=== PATIENT | male | born 1955 | race Two or more races ===

== ENCOUNTER 2016-09-28 17:07 | Emergency (ER) ==
[2016-09-28 17:20] VITALS: BP 112/72; TEMP 98; BMI 23.1
[2016-09-28 18:29] LABS: BASOPHILS % (AUTO) 0.5 % (0.0-3.0); EOSINOPHILS # (AUTO) 0.1 K/ul (0.0-0.7); EOSINOPHILS % (AUTO) 2.8 % (0.0-7.0); HEMATOCRIT 43.5 % (42.0-52.0); HEMOGLOBIN 14.6 g/dl (14.0-18.0); IMMATURE GRANULOCYTE % (AUTO) 0.5 % (0.0-5.0); LYMPHOCYTES # (AUTO) 0.9 K/uL (0.60-3.4); LYMPHOCYTES % (AUTO) 20.3 (10.0-50.0); MEAN CORPUSCULAR HEMOGLOBIN 28.7 pg (27.0-31.0); MEAN CORPUSCULAR HGB CONC 33.6 (31.8-35.4); MEAN CORPUSCULAR VOLUME 85.6 fl (80.0-94.0); MONOCYTES # (AUTO) 0.9 K/uL (0.4-2.0); MONOCYTES % (AUTO) 21.4 (0-10); NEUTROPHILS # (AUTO) 2.4 K/ul (2.0-6.9); NEUTROPHILS % (AUTO) 54.5; PLATELET COUNT 141 10^3/uL (140-440); RED BLOOD COUNT 5.08 10^6/ul (4.70-6.10); WHITE BLOOD COUNT 4.34 K/ul (4.2-10.2)
[2016-09-28] MEDS ORDERED: LIDOCAINE 1 % AMP 5 ML (SUTURES) IM STA (18:47)
[2016-09-28] MEDS ORDERED: ROCEPHIN IM STA (18:47)
[2016-09-28] MEDS ORDERED: ZITHROMAX PO STA (18:47)
[2016-09-28 18:49] LABS: ALBUMIN 3.6 g/dL (3.4-5.0); ALBUMIN/GLOBULIN RATIO 1.16; ANION GAP 11.7; BILIRUBIN,TOTAL 0.32 mg/dL (0.00-1.20); BUN/CREATININE RATIO 16.84; CREATININE 0.95 mg/dL (0.60-1.10); POTASSIUM 3.7 mmol/L (3.5-5.1); TOTAL PROTEIN 6.7 g/dL (5.8-8.1)
--- NOTE | 2016-09-28 18:49 | ED.PDOC ---
General ED Provider: Dr. COLT SNIDER Chief Complaint: Fever Stated Complaint: COUGH, FLU LIKE SYMPTOMS Time Seen by Physician: 17:10 Mode of Arrival: Walk-In Information Source: Patient, Family Exam Limitations: No limitations Nursing and Triage Documentation Reviewed and Agree: Yes Respiratory Complaint Exam - Respiratory Complaint/Exam Onset/Duration: 2 DAYS Symptoms Are: Resolved Timing: Intermittent Initial Severity: Moderate Current Severity: Mild Location: Nose, Throat, Chest Character: Reports: Non-productive cough Alleviating: Reports: Spontaneous resolution Associated Signs and Symptoms: Reports: Fever, Chills, URI, Nasal congestion History of Healthcare-Acquired Pneumonia: No Cardiac Risk Factors: Reports: None Pseudomonas Risk Factors: Reports: None Tuberculosis Risk Factors: Reports: None Home Oxygen Use: No Recent Stress Test: No Recent Echo/LV Function: No Current Antibiotic Use: No Current Asthma Medication Use: No Respiratory Distress: None Inadequate Respiratory Effort: No Dysphagia Present: No Stridor Present: No JVD Present: No Accessory Muscle Use: No Retractions: Not Present Grunting Respirations: No Kussmaul Respirations: No Differential Diagnoses: URI, Lower Resp. Infection Review of Systems - Review Of Systems Constitutional: Reports: Malaise Eyes: Reports: No symptoms Ears, Nose, Mouth, Throat: Reports: No symptoms Respiratory: Reports: Cough Cardiac: Reports: No symptoms GI: Reports: No symptoms : Reports: No symptoms Musculoskeletal: Reports: No symptoms Skin: Reports: No symptoms Neurological: Reports: No symptoms Endocrine: Reports: No symptoms Hematologic/Lymphatic: Reports: No symptoms All Other Systems: Reviewed and Negative Past Medical History - Past Medical History Endocrine: Reports: Unknown Cardiovascular: Reports: Unknown Respiratory: Reports: Unknown Hematological: Reports: Unknown Gastrointestinal: Reports: Unknown Genitourinary: Reports: Unknown Neuro/Psych: Reports: Unknown Musculoskeletal: Reports: Unknown Cancer: Reports: Unknown - Surgical History General Surgical History: Reports: Unknown - Family History Family History: Reports: Unknown - Social History Smoking Status: Never smoker Hx Substance Use: No Alcohol Screening: None Physical Exam - Physical Exam Appearance: Ill-appearing Ill-appearing: Mild Pain Distress: Mild Eyes: TARAN, EOMI, Conjunctiva clear ENT: Ears normal, Nose normal, Oropharynx normal Respiratory: Wheezes Cardiovascular: RRR, Pulses normal, No rub, No murmur GI/: Soft, Nontender, No masses, Bowel sounds normal, No Organomegaly Musculoskeletal: Normal strength, ROM intact, No edema, No calf tenderness Skin: Warm, Dry, Normal color Neurological: Sensation intact, Motor intact, Reflexes intact, Cranial nerves intact, Alert, Oriented Psychiatric: Affect appropriate, Mood appropriate Critical Care Note - Critical Care Note Total Time (mins): 0 Course - Course Hematology/Chemistry: 09/28/16 18:25 Orders, Labs, Meds: Lab Review 09/28/16 18:25 WBC 4.34 RBC 5.08 Hgb 14.6 Hct 43.5 MCV 85.6 MCH 28.7 MCHC 33.6 RDW Coeff of Maurice 13.7 Plt Count 141 Immature Gran % (Auto) 0.5 Neut % (Auto) 54.5 Lymph % (Auto) 20.3 [place] % (Auto) 21.4 H Eos % (Auto) 2.8 Baso % (Auto) 0.5 Immature Gran # (Auto) 0.0 Neut # 2.4 Lymph # 0.9 [place] # 0.9 Eos # 0.1 Baso # 0.0 Orders Category Date Time Status BLOOD CULTURE Stat LAB 09/28/16 18:25 Received CBC W/ AUTO DIFF Stat LAB 09/28/16 18:25 Completed COMPREHENSIVE METABOLIC PANEL Stat LAB 09/28/16 18:25 Received RAPID FLU A/B Stat LAB 09/28/16 18:30 Received STREP SCREEN Stat LAB 09/28/16 18:30 Received CHEST, 2 VIEWS PA & LAT Stat RADS 09/28/16 18:13 Taken Vital Signs: Temp Pulse Resp BP Pulse Ox 09/28/16 17:09 98.0 F 80 20 112/72 98 Departure - Departure Time of Disposition: 18:50 Disposition: HOME SELF-CARE Discharge Problem: Fever, Viral infection, Bronchitis Instructions: Bronchospasm (ED), Wheezing (ED), How Your Lungs Work (ED), Acute Bronchitis (ED) Condition: Good Pt referred to PMD for follow-up: No Additional Instructions: Please call your Family Physician as soon as possible to schedule a follow-up appointment. Allergies/Adverse Reactions: Allergies No Known Allergies Allergy (Verified 09/28/16 17:13)
[2016-09-28] MEDS ORDERED: DUONEB NEB STA (18:51)
[2016-09-28 18:52] LABS: FLU INTERNAL QC INTERNAL QC VALID; RAPID FLU A NEGATIVE (NEGATIVE); RAPID FLU B NEGATIVE (NEGATIVE)
--- NOTE | 2016-09-29 07:41 | DI ---
EXAM: Two views of the chest. History: Fever. Findings: Normal heart size. Subtle right apical opacity. No pleural fluid and no pneumothorax. No acute osseous abnormalities. Impression: Subtle right apical opacity could be artifact from rib shadow but cannot exclude early infiltrate or developing lung nodule. Follow-up recommended.
== END 2016-09-28 19:58 | disposition home or self-care (01) ==
LOC: ED 17:07
DX: B34.9 Viral infection, unspecified (principal); J40 Bronchitis, not specified as acute or chronic
CPT/HCPCS: 36415; 80053; 85025; 87040; 87651; 87804; 87880; 94640; 96372; 99283

== ENCOUNTER 2016-10-01 17:13 | Emergency (ER) ==
[2016-10-01 17:22] VITALS: BP 137/88; TEMP 97.7; BMI 22.8
--- NOTE | 2016-10-01 18:02 | ED.PDOC ---
General Stated Complaint: AP-Seen 3 days ago for cough. Dx with bronchitis. Has developed abd pain a weekk ago. Worse when coughs. Appetite decreased. Able to drink liquids[ End ]97.7 70 20 98% 137/88 03/14. Patient Name: THIAGO RICE. Date: 09/28/16 RAFATI: 2 DAYS: URI, Lower Resp. : Malaise. s: Bronchospasm (ED), Wheezing (ED), How Your Lungs Work (ED), Acute Bronchitis (ED ). Please call your Family Physician as soon as possible to schedule a follow- up appointment. Instructions: Abdominal Pain (ED): low fat diet---librax q 8hrs prn pain #15--omeprazole 20mg #30---f/u with [facility] --will need gb xrays. No Known Allergies Allergy Time Seen by Physician: 18:05 Mode of Arrival: Walk-In Information Source: Patient Exam Limitations: Language barrier Nursing and Triage Documentation Reviewed and Agree: No <PREET MARINELLI JR - Last Filed: 10/01/16 19:09> <SELMA SHAIKH - Last Filed: 10/01/16 20:32> ED Provider: Dr. SELMA SHAIKH Chief Complaint: Cough Review of Systems - Review Of Systems Constitutional: Reports: Malaise, Loss of appetite Eyes: Reports: No symptoms Ears, Nose, Mouth, Throat: Reports: No symptoms Respiratory: Reports: No symptoms, Cough (COUGHS ONEXAM BUT DENIES ANY COUGH THROUGH INTERNAL AUDIT CONSULTANT) Cardiac: Reports: No symptoms GI: Reports: Abdomen distended, Abdominal pain, Nausea, Poor appetite. Denies: Diarrhea, Vomiting : Reports: No symptoms Musculoskeletal: Reports: No symptoms Skin: Reports: No symptoms Neurological: Reports: No symptoms Endocrine: Reports: No symptoms Hematologic/Lymphatic: Reports: No symptoms All Other Systems: Other <PREET MARINELLI JR - Last Filed: 10/01/16 19:09> Past Medical History - Past Medical History Endocrine: Reports: Unknown Cardiovascular: Reports: Unknown Respiratory: Reports: Unknown Hematological: Reports: Unknown Gastrointestinal: Reports: Unknown Genitourinary: Reports: Unknown Neuro/Psych: Reports: Unknown Musculoskeletal: Reports: Unknown Cancer: Reports: Unknown - Surgical History General Surgical History: Reports: Unknown - Family History Family History: Reports: Unknown - Social History Smoking Status: Never smoker Hx Substance Use: No Alcohol Screening: None <PREET MARINELLI JR - Last Filed: 10/01/16 19:09> Physical Exam - Physical Exam Appearance: Well-appearing, Thin Pain Distress: Moderate Eyes: TARAN, EOMI, Conjunctiva clear ENT: Ears normal, Nose normal, Oropharynx normal Neck: Supple Respiratory: Airway patent, Breath sounds equal, Respirations nonlabored, Rhonchi Cardiovascular: RRR, Pulses normal, No rub, No murmur GI/: Soft, No masses, Bowel sounds normal, No Organomegaly, Tender (DIFFUSE POINTS TO PERIUMBILICAL AREA MOST TENDER) Musculoskeletal: Normal strength, ROM intact, No edema, No calf tenderness Skin: Warm, Dry, Normal color Neurological: Sensation intact, Motor intact, Reflexes intact, Cranial nerves intact, Alert, Oriented Psychiatric: Affect appropriate, Mood appropriate <PREET MARINELLI JR - Last Filed: 10/01/16 19:09> Re-Evaluation - Re-Evaluation Time of Re-Evaluation: 20:29 Status: Unchanged Vital Signs Stable: Yes Pain Level: 4 Appearance: NAD Lungs: Clear Skin: Warm and Dry Neuro: Alert and Oriented X3 CV: RRR <SELMA SHAIKH - Last Filed: 10/01/16 20:32> Critical Care Note - Critical Care Note Total Time (mins): 0 <[address] CEDENO - Last Filed: 10/01/16 19:09> Course - Course Hematology/Chemistry: 10/01/16 18:15 10/01/16 18:15 <PREET MARINELLI JR - Last Filed: 10/01/16 19:09> - Course Hematology/Chemistry: 10/01/16 18:15 10/01/16 18:15 <SELMA SHAIKH - Last Filed: 10/01/16 20:32> - Course Orders, Labs, Meds: Lab Review 10/01/16 10/01/16 18:15 18:55 WBC 3.33 L RBC 5.62 Hgb 16.1 Hct 47.2 MCV 84.0 MCH 28.6 MCHC 34.1 RDW Coeff of [place] 13.5 Plt Count 184 Immature Gran % (Auto) 0.6 Neut % (Auto) 35.5 Lymph % (Auto) 48.3 [place] % (Auto) 14.1 H Eos % (Auto) 0.9 Baso % (Auto) 0.6 Immature Gran # (Auto) 0.0 Neut # 1.2 L Lymph # 1.6 [place] # 0.5 Eos # 0.0 Baso # 0.0 Sodium 141 Potassium 3.9 Chloride 105 Carbon Dioxide 26 Anion Gap 13.9 BUN 21 H Creatinine 0.99 Estimated GFR (MDRD) 76.00 BUN/Creatinine Ratio 21.21 Glucose 91 Calcium 9.7 Total Bilirubin 0.53 AST 29 ALT 30 Alkaline Phosphatase 69 Total Protein 7.9 Albumin 4.2 Globulin 3.7 Albumin/Globulin Ratio 1.14 Amylase 58 Lipase 45 Procalcitonin < 0.05 Urine Color Yellow Urine Clarity Clear Urine pH 5.5 Ur Specific [place] >=1.030 Urine Protein 1+ Urine Glucose (UA) Negative Urine Ketones Negative Urine Blood Negative Urine Nitrite Negative Urine Bilirubin Negative Urine Urobilinogen 0.2 Ur Leukocyte Esterase Negative Urine Microscopic RBC 2-5 Ur Squamous Epith Cells 0-2 Urine Bacteria Trace Urine Mucus Trace H. pylori IgG Antibody Negative Orders Category Date Time Status EKG-(ED ONLY) Stat CARDIO 10/01/16 19:26 Ordered NPO REMINDER: IMAGING ONCE CARE 10/01/16 20:06 Active Bladder [ED BLADDER SCAN] .ONCE EMERGENCY 10/01/16 19:57 Active IV [ED IV/MEDIPORT/POWERPORT] .ONCE EMERGENCY 10/01/16 20:05 Active AMYLASE Stat LAB 10/01/16 18:15 Completed CBC W/ AUTO DIFF Stat LAB 10/01/16 18:15 Completed COMPREHENSIVE METABOLIC PANEL Stat LAB 10/01/16 18:15 Completed H. PYLORI SCREEN Stat LAB 10/01/16 18:15 Completed LIPASE Stat LAB 10/01/16 18:15 Completed PROCALCITONIN Stat LAB 10/01/16 18:15 Completed URINALYSIS C & S IF INDICATED Stat LAB 10/01/16 18:55 Completed 0.9 % Sodium Chloride [Saline Flush] MEDS 10/01/16 20:05 Ordered 1 syr IVF PRN PRN Sodium Chloride 0.9% [Sodium Chloride] 1,000 ml MEDS 10/01/16 20:05 Active IV 100 mls/hr CHEST, 2 VIEWS PA & LAT Stat RADS 10/01/16 18:[address] ABDOMEN/PELVIS W CONTRAST Stat RADS 10/01/16 20:[address] ABDOMEN/PELVIS WO CONTRAST Stat RADS 10/01/16 19:26 Completed Medications Generic Name Dose Route Start Last Admin Trade Name Christa PRN Reason Stop Dose Admin Sodium Chloride 1,000 mls @ 100 mls/hr 10/01/16 20:05 Sodium Chloride IV 10/02/16 06:04 .Q10H STA Sodium Chloride 1 syr 10/01/16 20:05 Saline Flush IVF PRN PRN To flush IV mr rice is still having pain--i spokle through an exterminator helper termite and explained carefully we wanted to get a ct scan with contrast --he absolutely refuses..again i explained through an exterminator helper termite we may miss pathology but not getting the ct scan but he still refuses--explain this could delay the dx and could result in injury and even but he still refuses..he wants to leave [place] (SELMA SHAIKH) Vital Signs: Temp Pulse Resp BP Pulse Ox 10/01/16 17:14 97.7 F 70 20 137/88 98 Departure - Departure Time of Disposition: 19:02 Pt referred to PMD for follow-up: Yes <PREET MARINELLI JR - Last Filed: 10/01/16 19:09> - Departure Pt referred to PMD for follow-up: Yes Disposition Discussed With: Patient, Family <SEMLA SHAIKH - Last Filed: 10/01/16 20:32> - Departure Disposition: AMA Discharge Problem: Abdominal pain Qualifiers: Abdominal location: periumbilical Qualifier Code: (R10.33) Periumbilical pain Instructions: Acute Abdominal Pain (ED) Condition: Fair Additional Instructions: ABDOMINAL PAIN CAN BE FROM SERIOUS CAUSES LOW WHITE COUNT DOSE NOT INDICATE INFECTION BLOOD TESTS ARE NORMAL NORMAL TEMPERATURE DOES NOT INDICATE INFECTION PAIN IN THIS AREA CAN BE FROM DEVELOPING PROBLEM SUCH APPENDICITIS OR GALL BLADDER, BUT NOTHING DEFINITE AT THIS TIME RECOMMEND CAT SCAN OF ABDOMEN MAY FOLLOW UP WITH YOUR PHYSICIAN IN THE MORNING RETURN IF PAIN INCREASES OR IF FEVER OVER 101.0 DRINK PLENTY OF WATER 6 TO 8 CUPS EACH DAY DISCUSS APPETITE WITH YOUR PHYSICIAN return if your pain worsens and you change your mind about further imaging Allergies/Adverse Reactions: Allergies No Known Allergies Allergy (Verified 09/28/16 17:13)
[2016-10-01 18:31] LABS: BASOPHILS % (AUTO) 0.6 % (0.0-3.0); EOSINOPHILS % (AUTO) 0.9 % (0.0-7.0); HEMATOCRIT 47.2 % (42.0-52.0); HEMOGLOBIN 16.1 g/dl (14.0-18.0); IMMATURE GRANULOCYTE % (AUTO) 0.6 % (0.0-5.0); LYMPHOCYTES # (AUTO) 1.6 K/uL (0.60-3.4); LYMPHOCYTES % (AUTO) 48.3 (10.0-50.0); MEAN CORPUSCULAR HEMOGLOBIN 28.6 pg (27.0-31.0); MEAN CORPUSCULAR HGB CONC 34.1 (31.8-35.4); MONOCYTES # (AUTO) 0.5 K/uL (0.4-2.0); MONOCYTES % (AUTO) 14.1 (0-10); NEUTROPHILS # (AUTO) 1.2 K/ul (2.0-6.9); NEUTROPHILS % (AUTO) 35.5; PLATELET COUNT 184 10^3/uL (140-440); RED BLOOD COUNT 5.62 10^6/ul (4.70-6.10); WHITE BLOOD COUNT 3.33 K/ul (4.2-10.2)
[2016-10-01 18:48] LABS: H. PYLORI ANTIBODY NEGATIVE (NEGATIVE); H.PYLORI INTERNAL QC INTERNAL QC VALID
[2016-10-01 18:53] LABS: ALBUMIN 4.2 g/dL (3.4-5.0); ALBUMIN/GLOBULIN RATIO 1.14; ANION GAP 13.9; BILIRUBIN,TOTAL 0.53 mg/dL (0.00-1.20); BUN/CREATININE RATIO 21.21; CALCIUM 9.7 mg/dL (8.2-10.2); CREATININE 0.99 mg/dL (0.60-1.10); POTASSIUM 3.9 mmol/L (3.5-5.1); TOTAL PROTEIN 7.9 g/dL (5.8-8.1)
[2016-10-01 19:04] LABS: BILIRUBIN,URINE Negative (NEGATIVE); KETONES,URINE Negative (NEGATIVE); LEUKOCYTE ESTERASE ,URINE Negative (NEGATIVE); NITRITE,URINE Negative (NEGATIVE); PH,URINE 5.5 (5-9); PROTEIN,URINE 1+ (NEGATIVE); URINE, BLOOD Negative (NEGATIVE)
[2016-10-01 19:09] LABS: ADD URINE MICROSCOPIC YES; BACTERIA,URINE TRACE (NOT PRESENT)
--- NOTE | 2016-10-01 19:49 | CT ---
EXAM: CT abdomen pelvis without contrast HISTORY: Abdominal pain and cough COMPARISON: CT abdomen pelvis 07/01/2016 TECHNIQUE: Serial axial images of the abdomen pelvis were performed from the lung bases through the inferior pelvis without contrast. These were viewed in multiple planes. FINDINGS: The lung bases demonstrate minimal bibasilar atelectasis. Evaluation is limited due to lack of contrast. The liver is unremarkable. The gallbladder is diste nded. The adrenal glands are unremarkable. There are numerous right-sided nonobstructing renal sto ely measuring up to 0.3 cm in diameter. There is no hydronephrosis or hydroureter. The left kidney demonstrates numerous nonobstructing stones. The largest measuring 0.6 cm in diameter. Stones are unchanged in size and number from prior exam. The spleen is unremarkable. The pancreas is unremar kable. Stomach is mildly distended. The small bowel in the abdomen and pelvis is unremarkable. The colon is unremarkable. Urinary blad enedina is partially distended. The prostate is normal. There is no free air or free fluid. There are no scattered pathologically enlarged lymph nodes. There is mild atherosclerotic disease. The osseo us structures demonstrate pars defects at L5 with anterior subluxation of L5 on S1 of approximately 0.6 cm. IMPRESSION: 1. No acute intra-abdominal or pelvic process to account for patient's symptoms. 2. Bilateral multiple nonobstructing renal stones with no hydronephrosis or hydroureter. 3. 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
[2016-10-01] MEDS ORDERED: SODIUM CHLORIDE 1,000 ML IV STA (20:05)
--- NOTE | 2016-10-02 07:23 | DI ---
Examination: Two radiographic images of the chest. Comparison: 09/28/2016. Reason for study: Cough. FINDINGS: Similar appearing right apical opacity. No pneumothorax or pleural effusion. The cardia c silhouette is not enlarged. The imaged osseous structures appear atraumatic. Impression: Similar appearing right apical opacity may be accentuated by summation artifact from th e rib shadows. Otherwise, no acute cardiopulmonary process. Follow up recommended.
== END 2016-10-01 20:44 | disposition left against medical advice (07) ==
LOC: ED 17:13
DX: R10.33 Periumbilical pain (principal)
CPT/HCPCS: 36415; 51798; 80053; 81001; 82150; 83690; 84145; 85025; 86677; 93005; 93010; 99284

== ENCOUNTER 2016-11-14 21:36 | Emergency (ER) ==
[2016-11-14 21:39] VITALS: BP 127/85; TEMP 97.8; BMI 22.6
--- NOTE | 2016-11-14 22:18 | ED.PDOC ---
General ED Provider: Dr. CHRISTINA KAPADIA Chief Complaint: Headache Stated Complaint: 3 day history of frontral headaches took tylenol which did not help. Time Seen by Physician: 21:50 Mode of Arrival: Walk-In Information Source: Patient Exam Limitations: No limitations Nursing and Triage Documentation Reviewed and Agree: Yes Neurological Complaint Exam - Headache Complaint/Exam Onset: Gradual Duration: 5 days Symptoms Are: Still present Timing: Constant Initial Severity: Mild Current Severity: Moderate Location: Frontal Character: Reports: Unable to describe Aggravating: Reports: None Alleviating: Reports: None Associated Signs and Symptoms: Denies: Dizziness, Seizure, Nausea, Vomiting, Sinus pressure, Fever, Neck pain, Neck stiffness, Decreased LOC, Visual changes Related History: Denies: Similar episode, Recent trauma, Remote trauma Related Surgical History: Reports: None SAH Risk Factors: Reports: None Meningitis Risk Factors: Reports: None SDH Risk Factors: Reports: None Temporal Arteritis Risk Factors: Reports: None Normal Head CT Within Last 12 Months: No Fundoscopic Exam: Present: Normal Findings Papilledema Present: No Temporal Artery Tenderness: Present: None Sinus Tenderness: Present: None TMJ Tenderness: Present: None Glascow Coma Scale (see protocol): 15 Meningeal Signs Positive: No Pain on Passive Flexion-Positive Kernig's: No ROM Limited In: No Limitiations Focal Weakness: Present: None Focal Sensory Loss: Present: None Gait: Normal Nystagmus Present: No Gag Reflex Present: Yes [id number]: Normal Findings Heel to Toe Normal: Yes Differential Diagnoses: Migraine, Sinus Headache, Tension Headache, Viral Syndrome Review of Systems - Review Of Systems Constitutional: Reports: No symptoms Eyes: Reports: No symptoms Ears, Nose, Mouth, Throat: Reports: No symptoms Respiratory: Reports: No symptoms Cardiac: Reports: No symptoms GI: Reports: No symptoms : Reports: No symptoms Musculoskeletal: Reports: No symptoms Skin: Reports: No symptoms Neurological: Reports: Headache Endocrine: Reports: No symptoms Hematologic/Lymphatic: Reports: No symptoms All Other Systems: Reviewed and Negative Past Medical History - Past Medical History Endocrine: Reports: Unknown Cardiovascular: Reports: Unknown Respiratory: Reports: Unknown Hematological: Reports: Unknown Gastrointestinal: Reports: Unknown Genitourinary: Reports: Unknown Neuro/Psych: Reports: Unknown Musculoskeletal: Reports: Unknown Cancer: Reports: Unknown - Surgical History General Surgical History: Reports: Unknown - Family History Family History: Reports: Unknown - Social History Smoking Status: Never smoker Hx Substance Use: No Alcohol Screening: None - Immunizations Tetanus Shot up to Date: No Physical Exam - Physical Exam Appearance: Ill-appearing, Well-nourished Ill-appearing: Mild Pain Distress: Mild Eyes: TARAN, EOMI, Conjunctiva clear ENT: Ears normal, Nose normal, Oropharynx normal Respiratory: Airway patent, Breath sounds clear, Breath sounds equal, Respirations nonlabored Cardiovascular: RRR, Pulses normal, No rub, No murmur GI/: Soft, Nontender, No masses, Bowel sounds normal, No Organomegaly Musculoskeletal: Normal strength, ROM intact, No edema, No calf tenderness Skin: Warm, Dry, Normal color Neurological: Sensation intact, Motor intact, Reflexes intact, Cranial nerves intact, Alert, Oriented Psychiatric: Anxious Critical Care Note - Critical Care Note Total Time (mins): 0 Course - Course Orders, Labs, Meds: Orders Category Date Time Status CBC W/ AUTO DIFF Stat LAB 11/14/16 22:04 Ordered COMPREHENSIVE METABOLIC PANEL Stat LAB 11/14/16 22:[address] HEAD W/O CONTRAST Stat RADS 11/14/16 22:[address] MAXILLOFACIAL W/O CONTRAST Stat RADS 11/14/16 22:02 Ordered Vital Signs: Temp Pulse Resp BP Pulse Ox 11/14/16 21:37 97.8 F 76 16 127/85 94 L Departure - Departure Time of Disposition: 22:17 Disposition: HOME SELF-CARE Discharge Problem: Headache Instructions: Acute Headache (ED) Condition: Stable Pt referred to PMD for follow-up: Yes Additional Instructions: follow up with PCP in 3 days Allergies/Adverse Reactions: Allergies No Known Allergies Allergy (Verified 11/14/16 21:39) Home Medications: Ambulatory Orders 1 [No Reported Medications] 11/14/16 Disposition Discussed With: Patient
== END 2016-11-14 22:38 | disposition home or self-care (01) ==
LOC: ED 21:36
DX: R51 Headache (principal)
CPT/HCPCS: 99282

== ENCOUNTER 2016-11-16 19:03 | Emergency (ER) ==
[2016-11-16 19:03] VITALS: BMI 22.6
[2016-11-16 19:16] VITALS: TEMP 98.5
[2016-11-16] MEDS ORDERED: TORADOL IM STA (19:16)
[2016-11-16] MEDS ORDERED: NORFLEX IM STA (19:16)
[2016-11-16 19:29] LABS: BASOPHILS # (AUTO) 0.1 K/uL (0-0.2); EOSINOPHILS # (AUTO) 0.3 K/ul (0.0-0.7); EOSINOPHILS % (AUTO) 5.7 % (0.0-7.0); HEMATOCRIT 41.5 % (42.0-52.0); HEMOGLOBIN 14.4 g/dl (14.0-18.0); IMMATURE GRANULOCYTE % (AUTO) 0.4 % (0.0-5.0); LYMPHOCYTES # (AUTO) 1.8 K/uL (0.60-3.4); LYMPHOCYTES % (AUTO) 36.4 (10.0-50.0); MEAN CORPUSCULAR HEMOGLOBIN 29.6 pg (27.0-31.0); MEAN CORPUSCULAR HGB CONC 34.7 (31.8-35.4); MEAN CORPUSCULAR VOLUME 85.2 fl (80.0-94.0); MONOCYTES # (AUTO) 0.6 K/uL (0.4-2.0); MONOCYTES % (AUTO) 10.9 (0-10); NEUTROPHILS # (AUTO) 2.3 K/ul (2.0-6.9); NEUTROPHILS % (AUTO) 45.6; PLATELET COUNT 152 10^3/uL (140-440); RED BLOOD COUNT 4.87 10^6/ul (4.70-6.10); WHITE BLOOD COUNT 5.05 K/ul (4.2-10.2)
--- NOTE | 2016-11-16 19:34 | ED.PDOC ---
General ED Provider: Dr. SELMA HAQ-ER Chief Complaint: Headache Stated Complaint: julia had a headache Time Seen by Physician: 19:05 Mode of Arrival: Walk-In Information Source: Patient, Other Exam Limitations: No limitations Nursing and Triage Documentation Reviewed and Agree: Yes Neurological Complaint Exam - Headache Complaint/Exam Onset: Gradual Duration: 5 days Symptoms Are: Still present Timing: Constant Worst Headache Ever: No Initial Severity: Mild Current Severity: Moderate Location: Left, Frontal, Temporal, Parietal Character: Reports: Dull, Throbbing, Pressure Aggravating: Reports: None Alleviating: Reports: None Associated Signs and Symptoms: Denies: Dizziness, Seizure, Nausea, Vomiting, Sinus pressure, Fever, Neck pain, Neck stiffness, Decreased LOC, Visual changes Related History: Reports: Similar episode Related Surgical History: Reports: None SAH Risk Factors: Reports: None Meningitis Risk Factors: Reports: Elderly SDH Risk Factors: Reports: Male Temporal Arteritis Risk Factors: Reports: Over 60 years old Normal Head CT Within Last 12 Months: No Fundoscopic Exam: Present: Normal Findings Papilledema Present: No Temporal Artery Tenderness: Present: None Sinus Tenderness: Present: None TMJ Tenderness: Present: None Glascow Coma Scale (see protocol): 15 Meningeal Signs Positive: No Pain on Passive Flexion-Positive Kernig's: No ROM Limited In: No Limitiations Focal Weakness: Present: None Focal Sensory Loss: Present: None Gait: Normal Nystagmus Present: No Gag Reflex Present: Yes [id number]: Normal Findings Romberg Test Positive: No Babinski Sign: Negative Right, Negative Left Heel to Toe Normal: Yes Differential Diagnoses: Migraine, Tension Headache Review of Systems - Review Of Systems Constitutional: Reports: No symptoms Eyes: Reports: No symptoms Ears, Nose, Mouth, Throat: Reports: No symptoms Respiratory: Reports: No symptoms Cardiac: Reports: No symptoms GI: Reports: No symptoms : Reports: No symptoms Musculoskeletal: Reports: No symptoms Skin: Reports: No symptoms Neurological: Reports: Headache Endocrine: Reports: No symptoms Hematologic/Lymphatic: Reports: No symptoms All Other Systems: Reviewed and Negative Past Medical History - Past Medical History Endocrine: Reports: Unknown Cardiovascular: Reports: Unknown Respiratory: Reports: Unknown Hematological: Reports: Unknown Gastrointestinal: Reports: Unknown Genitourinary: Reports: Unknown Neuro/Psych: Reports: Unknown Musculoskeletal: Reports: Unknown Cancer: Reports: Unknown - Surgical History General Surgical History: Reports: Unknown - Family History Family History: Reports: Unknown - Social History Smoking Status: Never smoker Hx Substance Use: No Alcohol Screening: None Lives: With family Physical Exam - Physical Exam Appearance: Well-appearing, No pain distress, Well-nourished Pain Distress: Moderate Eyes: TARAN ENT: Ears normal, Nose normal, Oropharynx normal Neck: Supple Respiratory: Airway patent, Breath sounds clear, Breath sounds equal, Respirations nonlabored Cardiovascular: RRR, Pulses normal, No rub, No murmur GI/: Soft Musculoskeletal: Normal strength, ROM intact, No edema, No calf tenderness Skin: Warm Neurological: Sensation intact, Motor intact, Reflexes intact, Cranial nerves intact, Alert, Oriented Psychiatric: Affect appropriate, Mood appropriate Interpretation - Radiology Interpretation Radiology Interpretation By: Radiologist Radiology Results: Positive Exam Interpreted: CT Scan Re-Evaluation - Re-Evaluation Time of Re-Evaluation: 20:12 Status: Improved Vital Signs Stable: Yes Pain Level: 1 Appearance: NAD Lungs: Clear Skin: Warm and Dry Neuro: Alert and Oriented X3 CV: RRR Critical Care Note - Critical Care Note Total Time (mins): 0 Course - Course Hematology/Chemistry: 11/16/16 19:20 11/16/16 19:20 Orders, Labs, Meds: Lab Review 11/16/16 19:20 WBC 5.05 RBC 4.87 Hgb 14.4 Hct 41.5 L MCV 85.2 MCH 29.6 MCHC 34.7 RDW Coeff of Maurice 14.3 Plt Count 152 Immature Gran % (Auto) 0.4 Neut % (Auto) 45.6 Lymph % (Auto) 36.4 Piute % (Auto) 10.9 H Eos % (Auto) 5.7 Baso % (Auto) 1.0 Immature Gran # (Auto) 0.0 Neut # 2.3 Lymph # 1.8 Piute # 0.6 Eos # 0.3 Baso # 0.1 ESR 10 Sodium 139 Potassium 4.1 Chloride 108 H Carbon Dioxide 19 L Anion Gap 16.1 BUN 12 Creatinine 0.79 Estimated GFR (MDRD) 99.00 BUN/Creatinine Ratio 15.18 Glucose 99 Calcium 9.3 Total Bilirubin 0.20 AST 26 ALT 31 Alkaline Phosphatase 49 L Total Protein 7.1 Albumin 4.1 Globulin 3.0 Albumin/Globulin Ratio 1.37 Orders Category Date Time Status CBC W/ AUTO DIFF Stat LAB 11/16/16 19:20 Completed COMPREHENSIVE METABOLIC PANEL Stat LAB 11/16/16 19:20 Completed ESR Stat LAB 11/16/16 19:20 Completed Ketorolac Tromethamine [Toradol] MEDS 11/16/16 19:16 Discontinued 60 mg IM ONCE STA Orphenadrine Citrate [Norflex] MEDS 11/16/16 19:16 Discontinued 60 mg IM ONCE STA CT HEAD W/O CONTRAST Stat RADS 11/16/16 19:15 Completed Medications Discontinued Medications Generic Name Dose Route Start Last Admin Trade Name Freq PRN Reason Stop Dose Admin Ketorolac Tromethamine 60 mg 11/16/16 19:16 11/16/16 19:32 Toradol IM 11/16/16 19:17 60 mg ONCE STA Administration Orphenadrine Citrate 60 mg 11/16/16 19:16 11/16/16 19:34 Norflex IM 11/16/16 19:17 60 mg ONCE STA Administration Vital Signs: Temp Pulse Resp BP Pulse Ox 11/16/16 19:03 98.5 F 75 20 149/87 H 97 Departure - Departure Time of Disposition: 20:12 Disposition: HOME SELF-CARE Discharge Problem: Sinusitis Qualifiers: Sinusitis location: unspecified location Chronicity: acute Recurrence: not specified as recurrent Qualifier Code: (J01.90) Acute sinusitis, unspecified Instructions: Sinusitis (ED) Condition: Good Pt referred to PMD for follow-up: Yes Additional Instructions: augmentin 875mg bid x 10 dasy--flonase nasal spray one puff each nostril bid -- toradol 10mg qid prn pain #16--f/u with pcp Allergies/Adverse Reactions: Allergies No Known Allergies Allergy (Verified 11/14/16 21:39) Home Medications: Ambulatory Orders 1 [No Reported Medications] 11/14/16 Disposition Discussed With: Patient, Family
[2016-11-16 19:47] LABS: ALBUMIN 4.1 g/dL (3.4-5.0); ALBUMIN/GLOBULIN RATIO 1.37; ANION GAP 16.1; BILIRUBIN,TOTAL 0.2 mg/dL (0.00-1.20); BUN/CREATININE RATIO 15.18; CALCIUM 9.3 mg/dL (8.2-10.2); CREATININE 0.79 mg/dL (0.60-1.10); POTASSIUM 4.1 mmol/L (3.5-5.1); TOTAL PROTEIN 7.1 g/dL (5.8-8.1)
[2016-11-16 20:00] LABS: ERYTHROCYTE SEDIMENTATION RATE 10 mm/hr (0-15); ESR INTERNAL QC INTERNAL QC VALID
--- NOTE | 2016-11-16 20:11 | CT ---
EXAM: CT scan head without contrast. HISTORY: Headache. COMPARISON: None. TECHNIQUE: Axial scans acquired 5 mm slice thicknesses. FINDINGS: There is no subdural hematoma or intracranial hemorrhage seen. There is no shift of midl ine structures. Borja-white matter differentiation is maintained. Ventricles are normal in size. Ma stoid air cells are clear. There is soft tissue density in the left ethmoid and sphenoid sinus cons istent with sinusitis IMPRESSION: No acute intracranial finding No intracranial hemorrhage, CVA, mass or hydrocephalus is seen. Left ethmoid and sphenoid sinusitis
[2016-11-16 20:21] VITALS: BP 128/87
== END 2016-11-16 20:21 | disposition home or self-care (01) ==
LOC: ED 19:03
DX: J01.90 Acute sinusitis, unspecified (principal)
CPT/HCPCS: 36415; 80053; 85025; 85651; 96372; 99283

== ENCOUNTER 2016-11-24 18:33 | Emergency (ER) ==
[2016-11-24 18:33] VITALS: BMI 22.6
[2016-11-24 18:47] VITALS: BP 118/84; TEMP 99.2
[2016-11-24] MEDS ORDERED: TORADOL IM STA (19:35)
--- NOTE | 2016-11-24 20:16 | ED.PDOC ---
General ED Provider: Dr. CHRISTINA KAPADIA Chief Complaint: Headache Stated Complaint: Patient is a 61 year old male who has been to the ER several times this month for headache. The last time he was here he was diagnosed with sinusitis and treated with antibiotics and Toradol. He returns with similar headache complaints which he state did ok with Toradol. Time Seen by Physician: 19:20 Mode of Arrival: Walk-In Information Source: Patient Exam Limitations: Language barrier Nursing and Triage Documentation Reviewed and Agree: Yes Review of Systems - Review Of Systems Constitutional: Reports: No symptoms Eyes: Reports: No symptoms Ears, Nose, Mouth, Throat: Reports: No symptoms Respiratory: Reports: No symptoms Cardiac: Reports: No symptoms GI: Reports: No symptoms : Reports: No symptoms Musculoskeletal: Reports: No symptoms Skin: Reports: No symptoms Neurological: Reports: Headache Endocrine: Reports: No symptoms Hematologic/Lymphatic: Reports: No symptoms All Other Systems: Reviewed and Negative Past Medical History - Past Medical History Previously Healthy: Yes Endocrine: Reports: None Cardiovascular: Reports: None Respiratory: Reports: None Hematological: Reports: None Gastrointestinal: Reports: None Genitourinary: Reports: None Neuro/Psych: Reports: None Musculoskeletal: Reports: None Cancer: Reports: None - Surgical History General Surgical History: Reports: None - Family History Family History: Reports: Unknown - Social History Smoking Status: Never smoker Hx Substance Use: No Alcohol Screening: None Physical Exam - Physical Exam Appearance: Well-appearing, No pain distress, Well-nourished Eyes: TARAN, EOMI, Conjunctiva clear ENT: Ears normal, Nose normal, Oropharynx normal Respiratory: Airway patent, Breath sounds clear, Breath sounds equal, Respirations nonlabored Cardiovascular: RRR, Pulses normal, No rub, No murmur GI/: Soft, Nontender, No masses, Bowel sounds normal, No Organomegaly Musculoskeletal: Normal strength, ROM intact, No edema, No calf tenderness Skin: Warm, Dry, Normal color Neurological: Sensation intact, Motor intact, Reflexes intact, Cranial nerves intact, Alert, Oriented Psychiatric: Affect appropriate, Mood appropriate Critical Care Note - Critical Care Note Total Time (mins): 0 Course - Course Orders, Labs, Meds: Orders Category Date Time Status Ketorolac Tromethamine [Toradol] MEDS 11/24/16 19:35 Discontinued 60 mg IM ONCE STA Medications Discontinued Medications Generic Name Dose Route Start Last Admin Trade Name Freq PRN Reason Stop Dose Admin Ketorolac Tromethamine 60 mg 11/24/16 19:35 11/24/16 19:40 Toradol IM 11/24/16 19:36 60 mg ONCE STA Administration Vital Signs: Temp Pulse Resp BP Pulse Ox 11/24/16 18:44 99.2 F 68 16 118/84 98 Departure - Departure Time of Disposition: 20:17 Disposition: HOME SELF-CARE Discharge Problem: Headache Instructions: General Headache (ED) Condition: Stable Pt referred to PMD for follow-up: Yes (follow up with the clinic) Additional Instructions: Take medications as prescribed follow up with PCP or the clinic in 3 days Must Keep APT for MRI of the brain tomorrow at 1 pm at [facility] Prescriptions: Diclofenac Potassium [Zipsor] 25 mg PO TID PRN #30 capsule PRN Reason: Headache Allergies/Adverse Reactions: Allergies No Known Allergies Allergy (Verified 11/24/16 18:48) Home Medications: Ambulatory Orders Diclofenac Potassium [Zipsor] 25 mg PO TID PRN #30 capsule 11/24/16 Disposition Discussed With: Patient, Family
== END 2016-11-24 20:29 | disposition home or self-care (01) ==
LOC: ED 18:33
DX: R51 Headache (principal)
CPT/HCPCS: 96372; 99282

== ENCOUNTER 2016-12-10 14:45 | Outpatient (CLI) ==
--- NOTE | 2016-12-10 15:51 | MRI ---
EXAM: MRI brain without IV contrast. DATE: 12/10/2016. HISTORY: Tension type headaches . Major migraine headaches. TECHNIQUE: Sagittal T1W, axial T2W, axial FLAIR, axial T1W, axial DWI, and coronal T2W GRE sequence s of the brain were obtained using 1.2 Scarlett magnet. No IV contrast. COMPARISON: CT head 11/16/2016. FINDINGS: The lateral ventricles and many frontal / parietal lobe sulci are prominent due to involu tional change. No midline shift, mass effect or abnormal extra-axial fluid collection is apparent. No acute infarct, hemorrhage or neoplasm is identified. Minimal T2W/FLAIR hyperintensity is noted in the white matter abutting each lateral ventricle. The babcock - white matter differentiation is nor mal. The 7th/8th cranial nerve complexes, cerebellopontine angles, brainstem, and visible cervical spinal cord are normal. Cerebellar tonsils extend near the inferior margin of the foramen magnum. There is no Chiari 1 malformation. The pituitary gland is normal in size and signal. Corpus callos um is normal in size and configuration. Flow voids are present in the major intracranial arteries a nd in the dural venous sinuses. No aneurysm, AVM or dural venous sinus thrombosis is apparent. No orbit abnormality is identified. The mastoid air cells are unremarkable. There is no acute sinusit is. Minor mucosal thickening versus small retention cyst is noted at the superomedial aspect of the right maxillary sinus. No neck mass or lymphadenopathy is detected. No calvarial neoplasm or acut e fracture is evident. A 5.4 mm soft tissue density posterior to the odontoid is likely pannus assoc iated with arthritis. There appears to be mild central canal stenoses at C2-3, C3-4 and C4-5. IMPRESSIONS: 1. No acute infarct, hemorrhage, mass or hydrocephalus. 2. Minimal supratentorial small vessel disease. 3. Mild cerebral atrophy (calvin. frontoparietal). 4. Right maxillary sinus small retention cyst. 5. Upper C-spine mild central canal stenoses.
== END 2016-12-10 14:46 | disposition home or self-care (01) ==
LOC: RAD 14:45
PROVIDERS: ATTEND Emergency Medicine
DX: G44.209 Tension-type headache, unspecified, not intractable (principal)

== ENCOUNTER 2017-07-04 15:09 | Emergency (ER) ==
[2017-07-04 15:16] VITALS: BP 135/90; TEMP 98.6; BMI 23.6
--- NOTE | 2017-07-04 16:05 | CT ---
EXAM: CT abdomen and pelvis without contrast. HISTORY: Abdominal pain. TECHNIQUE: Multi-slice transaxial helical CT. Coronal and sagittal reformatons were performed. COMPARISON: 10/01/2016 FINDINGS: The heart is normal in size. Bibasilar dependent atelectasis is present within the lung bases. Evaluation of the solid organs is limited without IV contrast. The spleen is normal in size. Multip le bilateral nonobstructing renal calculi are again seen which measure up to 8 mm in size in the midp ole region of the left kidney. A left renal stone has migrated into the left ureteral pelvic junctio n which measures up to 4.6 mm in size. This results in mild left hydronephrosis. The liver, pancrea s, gallbladder, and bilateral adrenal glands appear grossly unremarkable within the confines of a non contrast exam. The bowel is not dilated. Urinary bladder appears unremarkable. The prostate is enlarged measuring u p to 4.5 cm in diameter. Abnormal orientation of the sigmoid colon into the right upper quadrant of the abdomen is again seen, not significantly changed. No evidence of free fluid within the pelvis is seen. There is no retroperitoneal adenopathy. Bilateral L5 pars defects are again seen. 10 mm of r etrolisthesis of L5 and S1 is again seen. Moderate disc space narrowing with endplate osteophytosis is present at L5-S1. IMPRESSION: 1. 4.6 mm obstructing calculus at the left ureteral pelvic junction results in mild hydronephrosis. 2. Additional bilateral nonobstructing renal calculi. 3. Mild prostatic enlargement. 4. Abnormal course of the sigmoid colon into the right upper quadrant. 5. Unchanged bilateral L5 pars defects with L5 on S1 anterior listhesis.
[2017-07-04] MEDS ORDERED: TORADOL IM STA (16:23)
[2017-07-04] MEDS ORDERED: FLOMAX PO STA (16:35)
--- NOTE | 2017-07-04 16:38 | ED.PDOC ---
General ED Provider: Dr. SELMA HAQ-ER Chief Complaint: Abdominal Pain Stated Complaint: im hurting Time Seen by Physician: 15:15 Mode of Arrival: Walk-In Information Source: Patient Exam Limitations: No limitations [facility] Nursing and Triage Documentation Reviewed and Agree: Yes Reviewed sepsis parameters & appropriate labs ordered?: Yes System Inflammatory Response Syndrome: Not Applicable Sepsis Protocol: For patient's 13 years and over: Temp is 96.8 and below OR 101 and greater Pulse >90 BPM Resp >20/minute Acutely Altered Mental Status Are patient's symptoms suggestive of a new infection, such as: -Pneumonia -Skin, Soft Tissue -Endocarditis -UTI -Bone, Joint Infection -Implantable Device -Acute Abdominal Infection -Wound Infection -Meningitis -Blood Stream Catheter Infection -Unknown GI Complaint Exam - Abdominal Pain Complaint/Exam Onset: Gradual Duration: several hours Symptoms Are: Still present Timing: Constant Initial Severity: Mild Current Severity: Mild Radiates To: Reports: Back, Flank, LLQ Character: Reports: Dull, Aching Aggravating: Reports: None Alleviating: Reports: Spontaneous resolution Associated Signs and Symptoms: Reports: Back pain, Nausea. Denies: Diaphoresis , Fever, Cough, Chest pain, Dizziness, Constipation, Blood in stool, Dysuria, Urinary frequency, Decreased urine output, Decreased appetite, Discharge, Vomiting, Diarrhea, Decreased activity Differential Diagnoses: Constipation, Pancreatitis, Ureteral Stone Review of Systems - Review Of Systems Constitutional: Reports: No symptoms Eyes: Reports: No symptoms Ears, Nose, Mouth, Throat: Reports: No symptoms Respiratory: Reports: No symptoms Cardiac: Reports: No symptoms GI: Reports: Abdominal pain, Nausea : Reports: Flank pain, Pain Musculoskeletal: Reports: No symptoms Skin: Reports: No symptoms Neurological: Reports: No symptoms Endocrine: Reports: No symptoms Hematologic/Lymphatic: Reports: No symptoms All Other Systems: Reviewed and Negative Past Medical History - Past Medical History Previously Healthy: Yes Endocrine: Reports: None Cardiovascular: Reports: None Respiratory: Reports: None Hematological: Reports: None Gastrointestinal: Reports: None Genitourinary: Reports: None Neuro/Psych: Reports: None Musculoskeletal: Reports: None Cancer: Reports: None - Surgical History General Surgical History: Reports: None - Family History Family History: Reports: Unknown - Social History Smoking Status: Never smoker Hx Substance Use: No Alcohol Screening: None Lives: With family Physical Exam - Physical Exam Appearance: Well-appearing, No pain distress, Well-nourished Pain Distress: Mild Eyes: TARAN, EOMI, Conjunctiva clear ENT: Ears normal, Nose normal, Oropharynx normal Neck: Supple Respiratory: Airway patent Cardiovascular: RRR GI/: Soft Musculoskeletal: Normal strength, ROM intact, No edema, No calf tenderness Skin: Warm, Dry, Normal color Neurological: Sensation intact Psychiatric: Affect appropriate, Mood appropriate Interpretation - Radiology Interpretation Radiology Interpretation By: Radiologist Radiology Results: Positive Exam Interpreted: CT Scan (4.6mm left UPJ ) Re-Evaluation - Re-Evaluation Time of Re-Evaluation: 16:38 Status: Improved Vital Signs Stable: Yes Pain Level: 0 Appearance: NAD Lungs: Clear Skin: Warm and Dry Neuro: Alert and Oriented X3 CV: RRR Critical Care Note - Critical Care Note Total Time (mins): 0 Course - Course Hematology/Chemistry: 07/04/17 15:40 07/04/17 15:40 Orders, Labs, Meds: Lab Review 07/04/17 07/04/17 07/04/17 15:40 15:40 16:08 WBC 8.29 RBC 5.26 Hgb 15.5 Hct 45.4 MCV 86.3 MCH 29.5 MCHC 34.1 RDW Coeff of Maurice 13.0 Plt Count 149 Immature Gran % (Auto) 0.4 Neut % (Auto) 66.8 Lymph % (Auto) 22.1 Miner % (Auto) 6.9 Eos % (Auto) 3.1 Baso % (Auto) 0.7 Immature Gran # (Auto) 0.0 Neut # 5.5 Lymph # 1.8 Miner # 0.6 Eos # 0.3 Baso # 0.1 ESR 1 Sodium 142 Potassium 3.7 Chloride 106 Carbon Dioxide 25 Anion Gap 14.7 BUN 12 Creatinine 0.83 Estimated GFR (MDRD) 94.00 BUN/Creatinine Ratio 14.45 Glucose 93 Calcium 10.1 Total Bilirubin 0.8 AST 26 ALT 32 Alkaline Phosphatase 69 Total Creatine Kinase 220 CK-MB (CK-2) 2.9 CK-MB (CK-2) % 1.11057 Troponin I < 0.0100 Total Protein 7.7 Albumin 4.5 Globulin 3.2 Albumin/Globulin Ratio 1.41 Amylase 88 Lipase 54 Urine Color Yellow Urine Clarity Clear Urine pH 6.0 Ur Specific Pomerene 1.025 Urine Protein Negative Urine Glucose (UA) Negative Urine Ketones 1+ Urine Blood 3+ Urine Nitrite Negative Urine Bilirubin Negative Urine Urobilinogen 0.2 Ur Leukocyte Esterase Negative Urine Microscopic RBC 30-50 Urine Microscopic WBC 5-10 Ur Squamous Epith Cells Not present Urine Bacteria Trace Orders Category Date Time Status EKG-(ED ONLY) Stat CARDIO 07/04/17 15:27 Completed AMYLASE Stat LAB 07/04/17 15:40 Completed CBC W/ AUTO DIFF Stat LAB 07/04/17 15:40 Completed COMPREHENSIVE METABOLIC PANEL Stat LAB 07/04/17 15:40 Completed CREATINE KINASE Stat LAB 07/04/17 15:40 Completed ESR Stat LAB 07/04/17 15:40 Completed LIPASE Stat LAB 07/04/17 15:40 Completed TROPONIN I Stat LAB 07/04/17 15:40 Completed URINALYSIS C & S IF INDICATED Stat LAB 07/04/17 16:08 Completed URINE CULTURE Stat LAB 07/04/17 16:26 Received Ketorolac Tromethamine [Toradol] MEDS 07/04/17 16:23 Discontinued 60 mg IM ONCE STA Tamsulosin HCl [Flomax] MEDS 07/04/17 16:35 Stat 0.4 mg PO ONCE STA CT ABDOMEN/PELVIS WO CONTRAST Stat RADS 07/04/17 15:27 Completed Medications Generic Name Dose Route Start Last Admin Trade Name Freq PRN Reason Stop Dose Admin Tamsulosin HCl 0.4 mg 07/04/17 16:35 Flomax PO 07/04/17 16:36 ONCE STA Discontinued Medications Generic Name Dose Route Start Last Admin Trade Name Freq PRN Reason Stop Dose Admin Ketorolac Tromethamine 60 mg 07/04/17 16:23 07/04/17 16:31 Toradol IM 07/04/17 16:24 60 mg ONCE STA Administration Vital Signs: Temp Pulse Resp BP Pulse Ox 07/04/17 15:09 98.6 F 64 20 135/90 99 Departure - Departure Time of Disposition: 16:38 Disposition: HOME SELF-CARE Discharge Problem: Left ureteral calculus, Stomatitis Instructions: Kidney Stones (ED), How to Strain Your Urine (ED) Condition: Good Pt referred to PMD for follow-up: Yes Additional Instructions: flomax 0.4mg q daily #2--norco 7.5mg q 6hrs prn pain #6--push fluids--strain all urine- nystatin:lidocaine:benadryl:mylanta swish and spit 5cc qid --f/u with pcp on wednesday--return if any high fevers or persistent vomiting Allergies/Adverse Reactions: Allergies No Known Allergies Allergy (Verified 11/24/16 18:48) Home Medications: Ambulatory Orders Diclofenac Potassium [Zipsor] 25 mg PO TID PRN #30 capsule 11/24/16 Disposition Discussed With: Patient, Family
== END 2017-07-04 17:01 | disposition home or self-care (01) ==
LOC: ED 15:09
DX: N20.1 Calculus of ureter (principal); K12.1 Other forms of stomatitis
CPT/HCPCS: 36415; 80053; 81001; 82150; 82550; 82553; 83690; 84484; 85025; 85651; 87086; 93005; 93010; 96372; 99283

== ENCOUNTER 2018-01-11 15:10 | Outpatient (CLI) | END 2018-01-11 15:11 | disposition home or self-care (01) | LOC: LAB 15:10 | PROVIDERS: ATTEND Internal Medicine | DX: E78.5 Hyperlipidemia, unspecified (principal); Z12.5 Encounter for screening for malignant neoplasm of prostate | CPT/HCPCS: 36415; 80053; 80061; 83036; 84443; 85025 ==

== ENCOUNTER 2018-04-15 16:50 | Outpatient (CLI) | END 2018-04-15 16:51 | disposition home or self-care (01) | LOC: LAB 16:50 | PROVIDERS: ATTEND Internal Medicine | DX: E78.5 Hyperlipidemia, unspecified (principal); Z12.5 Encounter for screening for malignant neoplasm of prostate | CPT/HCPCS: 36415; 80053; 80061; 83036; 84443; 85025 ==

== ENCOUNTER 2018-08-18 16:46 | Outpatient (CLI) ==
[2018-06-20 07:24] VITALS: BMI 22.8
== END 2018-08-18 16:47 | disposition home or self-care (01) ==
LOC: LAB 16:46
PROVIDERS: ATTEND Internal Medicine
DX: E03.9 Hypothyroidism, unspecified (principal); E78.5 Hyperlipidemia, unspecified
CPT/HCPCS: 36415; 80053; 80061; 83036; 84439; 84443; 85025

== ENCOUNTER 2018-10-20 15:07 | Outpatient (CLI) ==
[2018-06-20 07:24] VITALS: BMI 22.8
--- NOTE | 2018-10-20 16:06 | DI ---
EXAM: Chest two views HISTORY: Short of breath COMPARISON: 10/01/2016 TECHNIQUE: Two views of the chest were performed FINDINGS: Lower airway thickening. No focal consolidation. There is no pleural effusion or pneumot horax. The heart is normal in size. The mediastinal contour is normal. There are no acute abnormal ities of the bones. IMPRESSION: Lower airway thickening may represent reactive airways disease or bronchiolitis. No foc al airspace consolidation.
--- NOTE | 2018-10-20 16:08 | DI ---
EXAM: Cervical spine five views HISTORY: Neck pain COMPARISON: None TECHNIQUE: Five views cervical spine were performed FINDINGS: Vertebral bodies normal height. No fracture. Reversal of the normal cervical lordosis. Multilevel marginal osteophyte formation. Multilevel intervertebral disc space narrowing, moderate t o severe at C5-C6 and C6-C7. Multilevel facet and uncovertebral hypertrophy. Prevertebral soft tiss ues appear normal. Degenerative changes cause multilevel bilateral neural foraminal narrowing of david sanjeev degrees and somewhat poorly evaluated on the right due to patient positioning. Severe areas of narrowing cannot be excluded. Prevertebral soft tissues appear normal. IMPRESSION: 1. Chronic discogenic degenerative disease and facet arthrosis. 2. Reversal of the normal cervical lordosis.
== END 2018-10-20 15:08 | disposition home or self-care (01) ==
LOC: RAD 15:07
PROVIDERS: ATTEND Internal Medicine
DX: M54.2 Cervicalgia (principal); R06.02 Shortness of breath